=== PATIENT | male | born 1950 | race Caucasian/White ===

== ENCOUNTER 2021-09-08 01:06 | Observation (INO) ==
[2021-09-08] MEDS ORDERED: Isovue-370 500 ML BOTTLE IVP ONE (01:22)
[2021-09-08] MEDS ORDERED: 0.9 % Sodium Chloride 1,000 ML IVC ONE (01:22)
[2021-09-08] MEDS ORDERED: Ondansetron 4 MG/2 ML VIAL IVP ONE (01:22)
[2021-09-08] MEDS ORDERED: Morphine Sulfate 2 MG/ML SYRINGE IVP ONE (01:22)
[2021-09-08 01:40] LABS: Basophils # 0.1 K/mcL (0.0-0.2); Basophils % 0.7 %; Eosinophils # 0.2 K/mcL (0.0-0.6); Eosinophils % 1.7 %; Hematocrit 37.1 % (37.5-50.1); Hemoglobin 12.4 g/dL (12.9-16.9); Immature Granulocytes % 0.4 % (0-4); Lymphocytes # 2.6 K/mcL (0.6-4.6); Mean Corpuscular HGB Conc 33.4 g/dL (31.6-35.5); Mean Corpuscular Hemoglobin 31.4 pg (28.0-33.3); Mean Corpuscular Volume 93.9 fL (83.0-100.0); Mean Platelet Volume 10.2 fL (9.4-12.4); Monocytes # 0.9 K/mcL (0.0-1.3); Monocytes % 6.8 %; Neutrophils # 8.6 K/mcL (1.6-8.9); Platelet Count 260 K/mcL (140-400); Red Blood Count 3.95 M/mcL (4.19-5.50); Red Cell Distribution Width 13.3 % (11.5-14.5); Segmented Neutrophils % 69.4 %; White Blood Count 12.4 K/mcL (4.3-11.1)
[2021-09-08] MEDS ORDERED: *HR* HYDROmorphone (PF) 1 MG/ML SYRINGE IVP ONE ×3 (02:45→04:24)
[2021-09-08 02:53] LABS: Alanine Aminotransferase 18 Units/L (7-52); Albumin 4.3 g/dL (3.5-5.7); Albumin/Globulin Ratio 1.4 (1.1-2.2); Alkaline Phosphatase 85 Units/L (34-104); Amylase 22 Units/L (29-103); Aspartate Amino Transferase 23 Units/L (13-39); BUN/Creatinine Ratio 12 (6-26); Bilirubin,Direct 0.1 mg/dL (0.0-0.2); Bilirubin,Indirect 0.4 mg/dL (0.0-1.0); Bilirubin,Total 0.5 mg/dL (0.3-1.0); Blood Urea Nitrogen 16 mg/dL (8-23); Calcium 9.9 mg/dL (8.6-10.3); Carbon Dioxide 25 mEq/L (23-29); Chloride 100 mEq/L (98-107); Globulin 3.1 g/dL (2.4-3.5); Glucose 165 mg/dL (70-105); Lipase 31 Units/L (11-82); Osmolality,Calculated 289 (280-300); Potassium 3.9 mEq/L (3.5-5.1); Sodium 137 mEq/L (136-145); Total Protein 7.4 g/dL (6.4-8.9); eGFR For African Americans > 60 (> 60); eGFR For Non-African Americans 51 (> 60)
[2021-09-08] MEDS ORDERED: Naloxone 0.4 MG/ML INJ IVP PRN (06:19)
[2021-09-08] MEDS ORDERED: Ondansetron 4 MG/2 ML VIAL IVP PRN (06:19)
[2021-09-08] MEDS: *HR* HYDROmorphone 2 MG/ML SYRINGE IVP PRN ×3 (07:19→21:08)
[2021-09-08] MEDS ORDERED: D5% in Water 1,000 ML IVC PRN (07:37)
[2021-09-08] MEDS ORDERED: Dextrose 4 GM Chewable Tablets PO PRN ×2 (07:37)
[2021-09-08] MEDS ORDERED: *HR* Dextrose 50 % in Water (Syg) 50 ML SYRINGE IVP PRN (07:37)
[2021-09-08] MEDS ORDERED: *HR* Metoprolol 5 MG/5 ML VIAL IVP PRN (07:39)
[2021-09-08] MEDS ORDERED: Pantoprazole 40 MG VIAL IVP SCH (09:00)
[2021-09-08] MEDS: 0.9 % Sodium Chloride 1,000 ML IVC SCH ×2 (09:48→18:56)
[2021-09-08] MEDS: Insulin LISPRO 300 UNITS/3 ML VIAL SUBQ SCH ×2 (12:28→18:50)
[2021-09-08 15:05] VITALS: TEMP 97.6
[2021-09-08 22:59] VITALS: BP 90/58; PULSE 115; O2SAT 91
[2021-09-09] MEDS: Insulin LISPRO 300 UNITS/3 ML VIAL SUBQ SCH (00:31)
[2021-09-09] MEDS: *HR* HYDROmorphone 2 MG/ML SYRINGE IVP PRN (01:13)
[2021-09-09] MEDS ORDERED: *HR* Atropine Sulfate 1 MG/10 ML SYRINGE IV ONE (09:06)
[2021-09-09] MEDS ORDERED: *HR* Etomidate 20 MG/10 ML AMPUL IVP ONE (09:06)
[2021-09-09] MEDS ORDERED: *HR* Dextrose 50 % in Water (Syg) 50 ML SYRINGE IVP ONE (09:06)
[2021-09-09] MEDS ORDERED: *HR* EPINEPHrine 1 MG/10 ML SYRINGE IVP ONE (09:06)
== END 2021-09-09 09:07 | disposition expired ==
LOC: EMEROOARM 01:06 → 3ANU 01:06 → SUATTDRO 04:46 → 3ANU 06:20
PROVIDERS: ADMIT Family Medicine; ATTEND Internal Medicine